=== PATIENT | female | born 1940 | race Caucasian/White ===

== ENCOUNTER 2024-12-29 15:32 | Inpatient (IN) | payer OTHER, SELFPAY ==
[2024-12-29] VITALS (10 sets, daily range): BP systolic 96–158; BP diastolic 49–89; BMI 26.6
[2024-12-29 12:21] LABS: Hematocrit 37.9 % (37.0-47.0); Hemoglobin 12.2 g/dL (12.0-16.0); Mean Corp Hgb Conc. 32.2 g/dL (33.0-37.0); Mean Corpuscular Volume 82.8 fL (81.0-99.0); Nucleated Red Blood Cells % 0 %; Platelet Count 254 10^3/uL (130-400); Red Cell Dist. Width 12.6 % (11.5-14.5)
[2024-12-29 12:45] LABS: ALT (SGPT) 25 U/L (0-35); AST (SGOT) 35 U/L (14-36); Albumin 3.5 g/dl (3.5-5.0); Alkaline Phosphatase 63 U/L (38-126); Blood Urea Nitrogen 36 mg/dl (7-17); Calcium 9.3 mg/dl (8.4-10.2); Carbon Dioxide 26 mmol/L (22-30); Chloride 101 mmol/L (98-107); Estimated Creatinine Clearance 25 ml/min; Glucose 134 mg/dl (70-99); Potassium 4.4 mmol/L (3.5-5.1); Sodium 134 mmol/L (135-145); Total Protein 6.9 g/dl (6.3-8.2); eGFR 37.33
[2024-12-29 13:06] LABS: Troponin I 0.059 ng/ml
--- NOTE | 2024-12-29 13:22 | ED.GENMED ---
History of Present Illness
General
Chief Complaint: Chest Pain
Time Seen by Provider: 12/29/24 12:12
History of Present Illness
History of Present Illness:
84-year-old female with history of permanent A-fib on Eliquis presents to the emergency department for evaluation of chest pain and general fatigue. She states that she had a brief period of time with chest pain 2 days ago but it resolved, since
that time she is reporting severe fatigue and feels as though she wants to fall asleep at any given moment. Denies shortness of breath or leg swelling. No prior history of coronary artery disease with no stents to her knowledge. Follows with
[facility]ology Dr. Posada
Review of Systems
Review of Systems
Allergies reviewed?: Yes
All Other Systems: ROS reviewed and negative except as documented in HPI and ROS
Phy Exam
Physical Exam
Physical Exam:
GEN: Well appearing, NAD, WDWN
HEENT: Oral mucosa moist, no scleral icterus
Cardiac: Irregular but controlled rate, no murmur
Lung: No respiratory distress, no tachypnea, faint crackles left lower lobe
MSK: No gross deformity or injuries
Skin: Good color, no pallor or jaundice, no rashes
Neuro: AO x3, moves all extremities freely
Psych: Calm, cooperative
Scores
Heart Score for Chest Pain Patients
STEMI patient?: No
History: Moderately Suspicious
ECG: Normal
Age: >/= 65 years
Risk Factors: 1 or 2 Risk Factors
Troponin: </= Normal Limit
Heart Score for Chest Pain Patients: 4
Heart Score Risk: 20.3% MACE over next 6 weeks
Course
Orders/Labs/Results
Orders:
Orders
12/29/24 12:06
Electrocardiogram (*1) Urgent
Reason for Study: Hypertension, Benign
EKG- Treatment ONCE
12/29/24 12:14
Complete Blood Count/With Diff Urgent
Comprehensive Metabolic Panel Urgent
Digoxin Urgent
12/29/24 12:19
CR Chest - 2 Views Urgent
Comment:
Reason For Exam: chest pain
12/29/24 12:22
Troponin I Urgent
12/29/24 13:22
Aspirin Chewable [Low Strength Aspirin] 324 mg PO NOW STA
12/29/24 14:56
Add On- LAB Routine
Tests Added?: Digoxin level
12/29/24 15:00
Admit/Transfer Patient As Directed
Co-Sign Provider:
Level of Care: Inpatient admission
Assign to:: IVU
Physician / Group: hospitalist
Diagnosis: NSTEMI
Reason for Hospitalization: NSTEMI
Expected length of stay greater than two midnights?: Yes
ELOS- Estimated Length of Stay in days: 3
I certify the patient meets the requirements for IP care: Yes
PRN Pain Medication Management As Directed
May give lesser potent ordered pain med per pt: Yes
preference::
Protocol:: Medication orders for pain may be administered in a
manner that supports deferring to patient preference
when the pt is:
- Requesting an ordered lesser potent pain medication.
Least to most potent pain medications are defined
as: acetaminophen < NSAID < tramadol < opioids
(morphine, oxycodone, hydromorphone).
- Requesting a lesser dose of the same medication IF
ORDERED.
- Requesting a less intrusive route of administration
if both routes are prescribed by the provider (PO <
IV).
12/29/24 15:02
Code Status As Directed
Resuscitation Status: Full Code
12/29/24 15:12
COVID-19 Antigen Routine
Source: Nasal Swab
12/29/24 15:26
0.9% Sodium Chloride 500 ml [Nss] 500 ml IV BOLUS
Abnormal Lab Results
12/29/24 12/29/24
12:14 12:22
WBC 13.8 H 10^3/uL
(4.8-10.8)
MCH 26.6 L pg
(27.0-31.0)
MCHC 32.2 L g/dL
(33.0-37.0)
MPV 11.1 H fL
(7.4-10.4)
Abs Immat Gran (auto) 0.1 H 10^3/uL
(0-0.05)
Absolute Neuts (auto) 12.0 H 10^3/uL
(1.4-6.5)
Absolute Lymphs (auto) 0.8 L 10^3/uL
(1.2-3.4)
Absolute Monos (auto) 0.9 H 10^3/uL
(0.1-0.6)
Immature Gran % 0.7 H %
(0-0.5)
Neutrophils % 86.5 H %
(42.2-75.2)
Lymphocytes % 5.5 L %
(20.5-51.1)
Sodium 134 L mmol/L
(135-145)
BUN 36 H mg/dl
(7-17)
Creatinine 1.4 H mg/dL
(0.6-1.0)
Glucose 134 H mg/dl
(70-99)
Troponin I 0.059 H* ng/ml
12/29/24 12:14
12/29/24 12:14
Vital Signs
Initial and Last Documented VS:
Initial Vital Signs
Temp Pulse Resp BP Pulse Ox
97.4 F 76 18 133/52 97
12/29/24 12:07 12/29/24 12:07 12/29/24 12:07 12/29/24 12:07 12/29/24 12:07
Last Documented Vital Signs
Temp Pulse Resp BP Pulse Ox
97.4 F 87 20 96/75 97
12/29/24 12:07 12/29/24 15:30 12/29/24 15:30 12/29/24 15:00 12/29/24 15:30
MDM/Problems Addressed
MDM/Problems Addressed:
Concern for NSTEMI causing her chest pain 2 days ago given elevated troponin. She is comfortable at this time, EKG does not appear ischemic however with no comparison from prior. Heparin withheld as the patient has taken anticoagulation as
recently as this morning. Will admit to the hospitalist service for further management
Comment
Comment:
EKG independently interpreted by me shows a rate controlled atrial fibrillation at a rate of 78, ST depressions with T wave inversions laterally noted, no comparisons available
*Pulse Oximetry
SaO2: 97
Oxygen Mode of Delivery: Room air
Patient hypoxic: no
*Critical Care Note
Total Time (30-74mins, 75-104mins- exclusive of procedures): Not Applicable
ED Attending Note
-
Portions of this chart may have been created with voice recognition software.� Occasional wrong word or��sound alike� substitutions may have occurred due to the inherent limitations of voice recognition software.
Discharge Plan
Departure
Patient Disposition: Admit
Date of Disposition: 12/29/24
Time of Disposition: 13:25
Admit to: IVU
Presentation/result/management discussed w/ accepting MD/DO: Hospitalist
Discharge Problem:
Non-ST elevation WI (NSTEMI)
Interventions
Interventions:
*Risk Screen - Suicide Last Done: 12/29/24 12:11
*General Assessment Last Done: 12/29/24 12:09
*Neglect/Abuse Screening Last Done: 12/29/24 12:11
*ED- Fall Risk Assessment Last Done: 12/29/24 12:09
*ED COVID-19 Vaccine History Last Done: 12/29/24 12:09
ED- Cardiac Assessment Last Done: 12/29/24 12:11
[2024-12-29] MEDS: LOW STRENGTH ASPIRIN 324 MG PO (13:26)
--- NOTE | 2024-12-29 13:52 | W.PN.UPDATE ---
Addendum entered and electronically signed by En Moore MD 12/29/24 15:33:
Correction:
ROS
Denies shortness of breath or leg swelling.
<del>No</del> <del>prior</del> <del>history</del> <del>of</del> <del>coronary</del> <del>artery</del> <del>disease</del> <del>with</del> <del>no</del> <del>stents</del> <del>to</del> <del>her</del> <del>knowledge.</del> Report prior HX [place]
Follows with [place] cardiology Dr. Posada
Original Note:
Update Note
Progress Note Update
This note serves as an addendum to the H&P by PGY3 Vianney Guevara
HPI�
84F on chronic eliquis and BB for HX permanent AF seen at ER:
- evaluation of SSCP and general fatigue.
- brief period of time with chest pain 2 days ago but it resolved
- severe fatigue and feels as though she wants to fall asleep at any given moment.
- associated N/V
ROS
Denies shortness of breath or leg swelling.
No prior history of coronary artery disease with no stents to her knowledge.
Follows with [place] cardiology Dr. Posada
Relevant VS
Temp Pulse Resp BP Pulse Ox
97.4 F 80 23 97/65 96
12/29/24 12:07 12/29/24 13:30 12/29/24 13:30 12/29/24 13:00 12/29/24 13:30
Reviewed VS:
PE
Gen: NAD
HEENT: anicteric
Neck: supple
Lungs: CTA
Cor:irregular
Abdomen:�benign
HEALTH AND SAFETY TRAINER: AAO3 grossly non focal
MS:no edema
Psych:nl mood an affect
Relevant Data�
12/29/24 12/29/24
12:14 12:22
WBC 13.8 H
Sodium 134 L
BUN 36 H
Creatinine 1.4 H
eGFR 37.33
Glucose 134 H
AST 35
Troponin I 0.059 H*
EKG
ATRIAL FIBRILLATION WITH A COMPETING JUNCTIONAL PACEMAKER WITH PREMATURE VENTRICULAR OR ABERRANTLY CONDUCTED COMPLEXES
NONSPECIFIC ST AND T WAVE ABNORMALITY
ABNORMAL ECG
NO PREVIOUS ECGS AVAILABLE
CXR: NAD
NO prior hospitalist admission:
ASSESSMENT & PLAN
NSTEMI - s/p ASA 325 mg at ER
Episodes of CP - currently CP free
- HX Prior cardiac care at [place].
- POS first TPNI - trend till peak
- Last dose of Eliquis this AM
- to hold Eliquis
- starts Heparin gtt this evening at the time of scheduled next dose of Eliquis
- c/w baby ASA
- ECHO in AM
- DCA cad consult
Fatigue and recent N/V
- check Covid
- check Dig level
- PT/OT
HLD
- on hi intensity Pravastatin
Perm A Fib
- will switch to Heparin gtt in place of Eliquis
- c/w Metoprolol tartrate
- on Dig - check Dig level prior to next dose
Renal insufficiency of uncertain chronicity
Creat suggestive of likely CKD
Trend Cr
DVT Px: Heparin gtt
Code: Full
IP TLM
--- NOTE | 2024-12-29 14:32 | HPS.HSE ---
Addendum entered and electronically signed by En Moore MD 12/29/24 15:39:
I saw and examined the patient.
The RUBBER ATTACHER or PA's note was reviewed and I agree PGY3 Vianney Guevara note:
Comment:
Please refer to my UPDATE NOTE
Original Note:
Family Physician
-
Family Physician: NOT KNOW UNKNOWN - Agreeable to Residency clinic
Chief Complaint
-
Chest pain, fatigue
History of Present Illness
84 year old female with history of prior MO without stents, permanent Afib on Eliquis, who presents to the ED from [facility] for recent chest pain and ongoing fatigue. Pt was in her usual state of health until two days ago when she
stared having nausea/vominting, and developed substernal chest pain and tiredness which had her spending most of her day in bed. Over the past two days chest pain improved and then resolved, but she continued to feel fatigued. 4 episodes of emesis,
with last episode yesterday. Also had reduced PO intake over past two days due to poor appetite.
She takes Eliquis for permanent Afib and took her morning dose before 10am today.
She ambulates with a cane due to left ankle joint instability but otherwise has no other medical conditions. No history of kidney disease. Denies dyspnea, lower extremity edema, recent illness of fevers/chills/sweats. Currently denies chest pain or
nausea.
Medical History
Past Medical History
Past Medical History: Reports Arrhythmia (permanent Afib on Eliquis)
Past Surgical History: Reports Gynocological (D&C) and Tonsilectomy
Social History
Tobacco: Non-smoker
Alcohol: None
Drug: None
Family History
Family History: Not pertinent
Allergies / Home Medications
Allergies reflects when Allergies were last updated in [facility].
Home Medications with original date entered in [facility]
Allergy/Medication List:
Allergies
Allergy/AdvReac Type Severity Reaction Status Date / Time
Penicillins Allergy Unknown Unknown Verified 12/29/24 12:15
Home Medications
apixaban 5 mg tablet (Eliquis) 5 mg PO BID Blood Clot Prevention/Tx 12/29/24
aspirin 81 mg chewable tablet 162 mg PO DAILYPRN PRN chest pain 12/29/24
cetirizine 10 mg tablet (Zyrtec) 10 mg PO HS Allergies 12/29/24
digoxin 125 mcg (0.125 mg) tablet 125 mcg PO DAILY Arrhythmia 12/29/24
metoprolol tartrate 25 mg tablet 25 mg PO BID Blood Pressure 12/29/24
pravastatin 80 mg tablet 80 mg PO HS 12/29/24
Review of Systems
-
History Source: Patient
Constitutional: Reports Fatigue; Denies Fever, Night Sweats or Chills
Respiratory: Denies Trouble Breathing
Cardiac: Denies Chest Pain, Diaphoresis or Palpitations
Abdomen/GI: Denies Abdominal Pain, Nausea, Vomiting, Diarrhea or Constipated
: Denies Dysuria, Incontinence, Difficulty Voiding or Bleeding
Physical Exam
Vital Signs
Vital Signs
Temp Pulse Resp BP Pulse Ox
97.4 F 80 23 97/65 96
12/29/24 12:07 12/29/24 13:30 12/29/24 13:30 12/29/24 13:00 12/29/24 13:30
Physical Exam
General: Well Developed, Well Nourished, No Apparent Distress, Comfortable and Conversant
HEENT: NormoCephalic, Anicteric and Other (Mucous membranes slightly dry)
Respiratory: Non Labored Respirations and Other (mildly reduced breath sounds in left lower lobe); No Wheezes, Rales, Rhonchi or Crackles
Cardiac: S1/S2 and Irregular Rhythm; No Peripheral Edema, Calf Tenderness, Verona's Sign or Other (regular rate)
GI: Soft, Non Tender, Non Distended and Normal Bowel Sounds
Genito-urinary: No costovertebral tender
Musculoskeletal: No Clubbing, No Cyanosis and No Edema
Skin: Warm and Dry
Neuro: Awake, Alert and Oriented
Psych: Calm
Laboratory Results
-
12/29/24 12:14
12/29/24 12:14
Laboratory Results
Total Bilirubin 0.8 mg/dl (0.2-1.3) 12/29/24 12:14
AST 35 U/L (14-36) 12/29/24 12:14
ALT 25 U/L (0-35) 12/29/24 12:14
Alkaline Phosphatase 63 U/L (38-126) 12/29/24 12:14
Troponin I 0.059 ng/ml H* 12/29/24 12:22
Impression/Plan
-
IMPRESSION:
84 year old female with history of prior MO, permanent Afib on Eliquis, who presents with non ST segment myocardial infarction.
PLAN:
NSTEMI:
Troponin 0.059, EKG with afib with nonspecific ST segment abnormality
- Pt received Aspirin in Ed, cont with Asp 81 tomorrow
- Took AM Eliquis dose (before 10am per pt). Will start heparin drip at 8pm today. Hold Eliquis
- Trend Troponin
- Check echo
- Continue pravastatin and metoprolol
Renal insufficiency of uncertain chronicity:
- Cr 1.4, pt reports no known history of CKD
- Hx of poor oral intake of food, appears somewhat dry. will give 500ml bolus NS
- Avoid nephrotoxic agents.
- Follow kidney function
Hypotension:
Mildly reduced DBP on arrival. Corrected spontaneously.
- Monitor
Permanent Afib:
- Rate controlled
- Hold Eliquis for heparin gtt
- Check digoxin level
CAD:
- Prior history of MO without stenting (per pt)
- Start Asp 81mg daily tomorrow, continue Pravastatin
DVT ppx: Heparin drip
Code Status: full Code
[2024-12-29 15:39] LABS: COVID-19 Antigen Negative (Negative)
--- NOTE | 2024-12-29 15:52 | CON.CAR ---
Addendum entered and electronically signed by Hong Aguillon MD 12/29/24 17:33:
I saw and examined the patient.
The POWER AND RECOVERY SHIFT ENGINEER or PA's note was reviewed and I agree with the note.
Comment: General: Well developed, well nourished in NAD.
Neck: Supple, no JVD, HJR, carotids +2 B/L, no bruits bilaterally.
Heart: Non displaced PMI, Irreg, no murmurs, No S3, S4, no rubs.
Lungs: Scattered rhonchi
Extremities: No clubbing, cyanosis or edema bilaterally.
Neuro: Grossly nonfocal, awake, alert and oriented x3.
Nazia has a history of permanent atrial fibrillation chronic anticoagulation, remote inferior DC in 2001, hyperlipidemia, UTIs. She presents with increasing lethargy. Cardiology is consulted for elevated troponin. She did have vomiting a few days
ago followed by some chest discomfort. She denies shortness of breath.
Will track troponins. Will check echocardiogram. Will get records from [facility]. Will hold scribleight and await troponin levels. Discussed in detail with daughter at bedside
Original Note:
Consultation
Consultation Request
Date/Time Consultation Performed: 12/29/24
Requesting Provider: Dr. Guevara, resident
Performing Provider: Veronique Onofre PA-C for Dr. Aguillon
Reason for Consultation: CP
Medical History
-
Chief Complaint: fatigue, lethargy
History of Present Illness:
Patient is an 84-year-old female with past medical history of permanent atrial fibrillation on chronic anticoagulation, remote inferior DC 2001, hyperlipidemia, frequent UTIs who presented to [facility] as patient's daughter noted that she was very
lethargic over the last several days. Patient states she fell asleep multiple times during the day throughout the last 2 days which is not normal for her. She denies fevers or chills. She does report vomiting followed by some central chest
discomfort 2 nights ago. She reports she was able to fall back to sleep and when she awoke again the pain was gone. She has not had recurrence. She has had recent stress as 3 weeks ago she moved into [facility] from an independent home. She is
followed by Dr. Venegas of [facility] [place] cardiology. Troponin 0.059 resulting in cardiology consultation.
PMH:
Permanent atrial fibrillation
Chronic anticoagulation with eliquis
CAD with prior remote inferior DC 2001, with reported inability to revascularize
PVCs
Hyperlipidemia
Frequent UTIs
Past Medical History
Past Medical History: Other (in HPI)
Social History
Tobacco: Non-Smoker
Alcohol: None
Living: Assisted Living (recently moved to [email or web address] ~3 weeks ago)
Family History
Family History: Reviewed & Not Pertinent
Allergies / Home Medications
Allergy/AdvReac Type Severity Reaction Status Date / Time
Penicillins Allergy Unknown Verified 12/29/24 15:49
�Medication �Instructions �Recorded �Confirmed �Type
apixaban 5 mg tablet (Eliquis) 5 mg PO BID Blood Clot 12/29/24 12/29/24 History
Prevention/Tx
aspirin 81 mg chewable tablet 162 mg PO DAILYPRN PRN chest pain 12/29/24 12/29/24 History
cetirizine 10 mg tablet (Zyrtec) 10 mg PO HS Allergies 12/29/24 12/29/24 History
digoxin 125 mcg (0.125 mg) tablet 125 mcg PO DAILY Arrhythmia 12/29/24 12/29/24 History
metoprolol tartrate 25 mg tablet 25 mg PO BID Blood Pressure 12/29/24 12/29/24 History
pravastatin 80 mg tablet 80 mg PO HS 12/29/24 12/29/24 History
Review of Systems
-
History Source: Patient and Family
All other systems: Negative unless noted
Physical Exam
Vital Signs
Temp Pulse Resp BP Pulse Ox
97.4 F 87 20 96/75 97
12/29/24 12:07 12/29/24 15:30 12/29/24 15:30 12/29/24 15:00 12/29/24 15:30
Lab Results
12/29/24 12:14
12/29/24 12:14
Troponin I 0.059 ng/ml H* 12/29/24 12:22
Physical Exam
General: No Apparent Distress and Comfortable
HEENT: Normocephalic, Anicteric and Moist Mucous Membranes
Respiratory: Clear and Non Labored Respirations
Cardiac: S1/S2 and Irregular Rhythm
GI: Soft, Non Tender, Non Distended and Normal Bowel Sounds
Musculoskeletal: No Clubbing, No Cyanosis and No Edema
Skin: Warm and Dry
Neuro: AO x 3
Impression / Plan
-
Primary Validation Scientist: Dr. Venegas of [facility] [place] [facility]
Assessment:
Presentation with lethargy
N/V
Leukocytosis
ABIOLA
Elevated troponin
Permanent atrial fibrillation
Chronic anticoagulation with eliquis
CAD with prior remote inferior DC 2001, with reported inability to revascularize
PVCs
Hyperlipidemia
Frequent UTIs
Persantine MIBI nuclear stress test 05/14/2018: Small to moderate sized fixed anterior defect with no evidence of ischemia
ECHO 03/06/23: EF 60%, mild concentric LVH, enlarged left atrium, mild to moderate MR, mild TR
Plan:
- Patient presents with lethargy and nausea vomiting. She is noted to have leukocytosis and ABIOLA with history of frequent UTIs. Ordered UA with reflex to culture. covid test negative
- Requested and received records from primary metal caster including last office visit 07/02/2024, last echocardiogram 03/06/2023, and last Persantine MIBI stress test from 2018. Records summarized above
- Troponin elevated at 0.059. Patient does relay some chest discomfort which occurred after vomiting 2 days ago. She has not had recurrence since and is chest pain-free at present. Would trend troponin
- Hold Eliquis for now if troponin uptrending, may require inpatient ischemic evaluation. If stable or downtrending, more likely nonischemic myocardial injury and would attempt to manage conservatively
- Check echo, last from 2022 with results as above
- Continue aspirin
- check CVE
- CXR without acute abnormality
- By review of EKGs in rate controlled atrial fibrillation and occasional PVC. Continue Lopressor
- Dig level is 1.2. will decrease dosing to 0.125mg MWF as also with ABIOLA at present
- d/w patient and daughter Michelle at bedside
Data Reviewed
-
EKG: Tracing Personally Visualized and interpreted
Radiology: Report Reviewed by me, Discussed with Patient and Discussed with Family
Medical Tests (Nuc Med, Echo etc): Report Reviewed by me
Labs: Labs Reviewed by me, Discussed with Patient and Discussed with Family
Old Records: Requested and Reviewed
[2024-12-29] MEDS: FLUSH (NSS) 1 FLUSH IV (16:02)
[2024-12-29] MEDS: NSS 500 IV (16:03)
[2024-12-29 16:15] LABS: Digoxin 1.2 ng/ml (0.8-2.0)
[2024-12-29 17:16] LABS: Urine Character Clear (Clear)
[2024-12-29 17:33] LABS: Urine White Cell 70-80 /HPF (0-5)
--- NOTE | 2024-12-29 18:04 | PTCARENOTE ---
patient arrived form ER, height and weight recorded. monitor shows Afib, VSS. patient has no c/o CP, SOB, Dizziness or nausea. patient AAO x 3, lung mohr clear, o2 sat 97% on RA, INT in right AC, flushes well. labs drawn and sent to lab. EKG done
as ordered. oriented to room and surroundings.
[2024-12-29 18:12] LABS: Hematocrit 35.7 % (37.0-47.0); Hemoglobin 11.8 g/dL (12.0-16.0); Mean Corp Hgb Conc. 33.1 g/dL (33.0-37.0); Mean Corpuscular Volume 81.3 fL (81.0-99.0); Platelet Count 258 10^3/uL (130-400); Red Cell Dist. Width 12.7 % (11.5-14.5)
--- NOTE | 2024-12-29 18:15 | W.PN.UPDATE ---
Update Note
Progress Note Update
Digoxin level 1.2 - relatively high for age and kidney function. Continue to hold for now. Will recheck Digoxin level in AM.
[2024-12-29 18:25] LABS: APTT 38.3 Sec (23.4-35.0)
[2024-12-29 18:34] LABS: Troponin I 0.047 ng/ml
[2024-12-29] MEDS: LOPRESSOR 25 MG PO (19:55)
[2024-12-29] MEDS: HEPARIN 25000 UNITS/250 ML IV (20:57)
[2024-12-29] MEDS: PRAVACHOL 80 MG PO (21:10)
[2024-12-29 21:51] LABS: Troponin I 0.051 ng/ml
--- NOTE | 2024-12-29 23:50 | PTCARENOTE ---
Patient received at change of shift resting in the bed. The patient denies chest pain or pressure at this time. Afib on the monitor. Patient AOx3 but has been somewhat forgetful at times, bed alarm in place. Serial troponin and ECGs completed as
ordered. Heparin gtt initiated as ordered. Discussed plan of care. Call carmichael within reach. Care ongoing.
[2024-12-30] VITALS (12 sets, daily range): BP systolic 71–143; BP diastolic 45–73; PULSE 89; O2SAT 97; BMI 26.1
[2024-12-30 00:32] LABS: Troponin I 0.049 ng/ml
[2024-12-30 03:41] LABS: Hematocrit 32.0 % (37.0-47.0); Hemoglobin 10.6 g/dL (12.0-16.0); Mean Corp Hgb Conc. 33.1 g/dL (33.0-37.0); Mean Corpuscular Volume 81.6 fL (81.0-99.0); Platelet Count 234 10^3/uL (130-400); Red Cell Dist. Width 12.7 % (11.5-14.5)
[2024-12-30 03:51] LABS: APTT 47.2 Sec (23.4-35.0)
[2024-12-30 04:09] LABS: Blood Urea Nitrogen 35 mg/dl (7-17); Calcium 9.0 mg/dl (8.4-10.2); Carbon Dioxide 25 mmol/L (22-30); Chloride 106 mmol/L (98-107); Digoxin 0.9 ng/ml (0.8-2.0); Estimated Creatinine Clearance 32 ml/min; Glucose 103 mg/dl (70-99); Potassium 4.1 mmol/L (3.5-5.1); Sodium 135 mmol/L (135-145); eGFR 49.86
[2024-12-30] MEDS: ZYRTEC 10 MG PO (07:40)
[2024-12-30] MEDS: LOPRESSOR 25 MG PO ×2 (07:40→19:29)
[2024-12-30] MEDS: LOW STRENGTH ASPIRIN 81 MG PO (07:40)
--- NOTE | 2024-12-30 08:51 | W.PN.CARDCBS ---
Addendum entered and electronically signed by Veronique Onofre PA-C 12/30/24 14:33:
echo 12/30/24 with EF 55 to 60%, mild concentric LVH, mild AR, mild to moderate eccentric posteriorly directed MR, mild TR, PAP 34 mmHg. this is stable compared to prior report received from primary theater education teacher dated 03/06/23. no plans for additional
cardiac intervention at this time. would consider for OP stress testing through primary theater education teacher upon DC. will transition IV heparin back to eliquis. will sign off, please call with questions.
Addendum entered and electronically signed by Masood Tolliver MD 12/30/24 09:57:
I saw and examined the patient.
The Slate Worker's note was reviewed and I agree with the note.
Comment: Briefly, 84-year-old woman past medical history of permanent atrial fibrillation and CAD with remote SC presenting with lethargy and is being treated for presumed UTI.
Patient's initial troponin was found to be elevated 0.059 for which cardiology was consulted
Overall troponin trend is flat 0.059�0.047�0.051�0.049. No need to trend further.
Patient is not reporting any chest discomfort to me this morning
ECGs reviewed showing nonspecific ST/T wave changes
Plan to check transthoracic echocardiogram and if this is unremarkable patient can discuss outpatient stress testing with her primary theater education teacher at [place]
Would discharge on aspirin/Eliquis, metoprolol, home statin and decreased dose of digoxin
Rest per Veronique Onofre
Original Note:
Today's Communication / Plan
-
Troponins flat overnight, suspected nonischemic myocardial injury
Check echo
If echo stable, we will plan to transition IV heparin back to Eliquis and sign off
Continue Lopressor. Would recommend decrease digoxin dosing from 125 mcg daily to 125 mcg Saturday for discharge with repeat digoxin level in 1 week
Outpatient follow-up with Dr. Venegas
Treatment of UTI per primary service
Impression / Plan
-
Primary Payroll Master: Dr. Venegas of [facility]
Assessment:
Presentation with lethargy
N/V
Leukocytosis
ABIOLA
Elevated troponin, suspected nonischemic myocardial injury
Permanent atrial fibrillation
Chronic anticoagulation with eliquis
CAD with prior remote inferior SC 2001, with reported inability to revascularize
PVCs
Hyperlipidemia
Frequent UTIs
Persantine MIBI nuclear stress test 05/14/2018: Small to moderate sized fixed anterior defect with no evidence of ischemia
ECHO 03/06/23: EF 60%, mild concentric LVH, enlarged left atrium, mild to moderate MR, mild TR
Plan:
- Patient presents with lethargy and nausea/vomiting. She is noted to have leukocytosis and ABIOLA with history of frequent UTIs. UA grossly abnormal. Urine culture pending. Defer treatment to primary service
- Received IV fluid and creatinine has improved from 1.4-1.1
- She reports some chest discomfort which occurred after vomiting 2 days ago. She remained chest pain-free overnight. Troponins remain flat in 0.04�0.05 range, suspected nonischemic myocardial injury
- Check echo. If remains stable compared to above, would plan to transition IV heparin back to outpatient Eliquis as no plans for inpatient cardiac intervention and will plan to sign off
- Continue aspirin, statin
- Remains in rate controlled atrial fibrillation on review of telemetry overnight. Continue outpatient Lopressor
- Digoxin level improved from 1.2 yesterday to 0.9 today. Will decrease dosing to 0.125 mg Saturday
- Outpatient cardiac follow-up with Dr. Venegas
- d/w nursing. d/w hospitalist via TT
Progress Note - Payroll Master
Subjective
Date of Service: December 30, 2024
No chest discomfort overnight. Reports feeling better today
Objective
Labs:
12/30/24 03:10
12/30/24 03:10
Labs
Hgb 10.6 g/dL (12.0-16.0) L 12/30/24 03:10
Hct 32.0 % (37.0-47.0) L 12/30/24 03:10
Plt Count 234 10^3/uL (130-400) 12/30/24 03:10
APTT 47.2 Sec (23.4-35.0) H 12/30/24 03:10
Sodium 135 mmol/L (135-145) 12/30/24 03:10
Potassium 4.1 mmol/L (3.5-5.1) 12/30/24 03:10
BUN 35 mg/dl (7-17) H 12/30/24 03:10
Creatinine 1.1 mg/dL (0.6-1.0) H 12/30/24 03:10
Glucose 103 mg/dl (70-99) H 12/30/24 03:10
Digoxin 0.9 ng/ml (0.8-2.0) 12/30/24 03:10
Troponins
12/29/24 12/29/24 12/29/24
12:22 18:02 21:09
Troponin I 0.059 H* 0.047 H* 0.051 H*
12/29/24
23:47
Troponin I 0.049 H*
Vital Signs and I&O:
Vital Signs
Temp Pulse Resp BP Pulse Ox
98.6 F 64 16 127/62 97
12/30/24 07:15 12/30/24 06:00 12/30/24 07:15 12/30/24 03:01 12/30/24 07:15
Vital Signs
Temp Pulse Resp BP Pulse Ox
98.6 F 64 16 127/62 97
12/30/24 07:15 12/30/24 06:00 12/30/24 07:15 12/30/24 03:01 12/30/24 07:15
Intake & Output
09/01/25 09/02/25 09/03/25 09/04/25
07:59 07:59 07:59 07:59
Intake Total 240 / 240
Balance 240 / 240
Physical Exam
Physical Exam
GEN: No distress, awake, alert, oriented x3
HEENT: supple, anicteric, mmm, EOMI
LUNGS: CTA bilaterally, no wheezes/rales
CV: Reg, S1/S2, 1/6 murmur
ABD: soft, BS+, NT/ND
EXT: No cyanosis, clubbing, edema
NEURO: Gross non-focal
SKIN: Warm, pink, dry. No rash
[2024-12-30 09:25] LABS: Glycohemoglobin (HgbA1c) 6.2 % (4.0-5.6)
--- NOTE | 2024-12-30 10:12 | W.PN.HOSP.TC ---
Today's Communication/Plan
-
ischemic work up including echo
await urine culture
Assessment / Plan
Assessment / Plan
Physical Exam
General: Well Developed, Well Nourished, No Apparent Distress, Comfortable and Conversant
HEENT: Normocephalic, Anicteric and Other (Mucous membranes slightly dry)
Respiratory: Non Labored Respirations , no wheezes or rales.
Cardiac: S1/S2
GI: Soft, Non Tender, Non Distended and Normal Bowel Sounds
Genito-urinary: No costovertebral tender
Musculoskeletal: No Clubbing, No Cyanosis and No Edema
Skin: Warm and Dry
Neuro: Awake, Alert and Oriented
Psych: Calm
84 year old female with history of prior [place], permanent Afib on Eliquis, who presents with chest pain
# Chest pain, rule out [place]
known CAD
D/w metalsmith, seems to favor non ischemic elevation of troponin and not c/w NSTEMI
will f/w echo , will d/w metalsmith today
ABIOLA
- Cr 1.4, improved.
Hypotension: no clinical significance
Permanent Afib:
- Rate controlled
Hyponatremia
Suspect UTI
not septic or toxic
No urinary symptoms
She felt dehydrated
Await urine culture
DVT ppx: Heparin drip
Code Status: full Code
Total time spent to see the patient, examine the patient, review data lab result, discuss treatment plan with patient, nursing staff around 55 minutes
Anticipated Discharge: 24 - 48 hours
Subjective/Interval History
-
Date of Service: December 30, 2024
No chest pain
No sob
Objective Data
-
Labs:
Laboratory Results
12/30/24 12/30/24
03:10 10:00
WBC 10.0
Hgb 10.6 L
Hct 32.0 L
Plt Count 234
APTT 47.2 H Pending
Sodium 135
Potassium 4.1
Chloride 106
Carbon Dioxide 25
BUN 35 H
Creatinine 1.1 H
Glucose 103 H
Calcium 9.0
Vital Signs:
Vital Signs
Temp Pulse Resp BP Pulse Ox
98.6 F 64 16 127/62 97
12/30/24 07:15 12/30/24 06:00 12/30/24 07:15 12/30/24 03:01 12/30/24 07:15
I&O
12/29/24 12/30/24 12/31/24
06:59 06:59 06:59
Intake Total 240 / 240
Balance 240 / 240
--- NOTE | 2024-12-30 11:56 | PTCARENOTE ---
Patient comfortable in chair, denies pain or shortness of breath. She is AO x3, with some forgetfulness, needs some reminders the day. Heparin gtt infusing at 1000 units/hr, PTT pending. A-fib HR in 8)'s. Echo pending. Bed and chair alarms in place
for safety, uses a single point cane with walking.
[2024-12-30 12:16] LABS: APTT 46.6 Sec (23.4-35.0)
--- NOTE | 2024-12-30 14:31 | CM ---
spoke to pt in room, she is prev indep, lives in [facility] apt at [facility], one floor , no steps to enter. she has a cane she uses, and denies any dc planning needs. plan is for dc to home when medically stable.
[2024-12-30] MEDS: PRAVACHOL 80 MG PO (20:21)
[2024-12-30] MEDS: LEVAQUIN 100 IV (20:21)
[2024-12-30] MEDS: ELIQUIS 5 MG PO (20:21)
--- NOTE | 2024-12-31 00:35 | PTCARENOTE ---
Pt. has no complaints of chest pain discomfort, VSS, A-fib on the monitor 60s-80's. OOB with assist x 1 to use BR, forgetful and won't always ask for help, bed alarm on. Heparin dc'd this shift per order, Eliquis started. Pt. resting quietly.
[2024-12-31 04:05] VITALS: BP 122/61
[2024-12-31 04:10] VITALS: BMI 25.9
[2024-12-31 07:18] VITALS: BP 136/64
[2024-12-31] MEDS: ZYRTEC 10 MG PO (08:33)
[2024-12-31] MEDS: ELIQUIS 5 MG PO (08:33)
[2024-12-31] MEDS: CEFTIN 500 MG PO (08:33)
[2024-12-31] MEDS: LOPRESSOR 25 MG PO (08:33)
[2024-12-31] MEDS: LOW STRENGTH ASPIRIN 81 MG PO (08:33)
[2024-12-31 09:04] LABS: Hematocrit 33.6 % (37.0-47.0); Hemoglobin 11.1 g/dL (12.0-16.0); Mean Corp Hgb Conc. 33.0 g/dL (33.0-37.0); Mean Corpuscular Volume 82.4 fL (81.0-99.0); Red Cell Dist. Width 12.8 % (11.5-14.5)
[2024-12-31 09:25] LABS: Platelet Count 132 10^3/uL (130-400)
--- NOTE | 2024-12-31 09:33 | W.PN.HOSP.TC ---
Today's Communication/Plan
-
dc
Assessment / Plan
Assessment / Plan
Physical Exam
General: Well Developed, Well Nourished, No Apparent Distress, Comfortable and Conversant
HEENT: Normocephalic, Anicteric and Other (Mucous membranes slightly dry)
Respiratory: Non Labored Respirations , no wheezes or rales.
Cardiac: S1/S2
GI: Soft, Non Tender, Non Distended and Normal Bowel Sounds
Genito-urinary: No costovertebral tender
Musculoskeletal: No Clubbing, No Cyanosis and No Edema
Skin: Warm and Dry
Neuro: Awake, Alert and Oriented
Psych: Calm
84 year old female with history of prior VA, permanent Afib on Eliquis, who presents with chest pain
# Chest pain, ruled out VA
known CAD
D/w video news editor, seems to favor non ischemic elevation of troponin and not c/w NSTEMI
Echo showed LVEF 55 to 60%, mild concentric LVH, mild AR, mild to moderate eccentric posteriorly directed MR, mild TR, PAP 34 mmHg. Echo seemed stable compared to prior report received from primary video news editor dated 03/06/23. Per cardiology: no
plans for additional cardiac intervention at this time.
ABIOLA
- Cr 1.4, improved.
Hypotension: no clinical significance
Permanent Afib:
- Rate controlled
Hyponatremia
# E Coli UTI
not septic or toxic
She reports tolerance to Keflex before, will do Ceftin X 5 days.
DVT ppx: Eliquis
Code Status: full Code
Total discharge time spent to see the patient, examine the patient, review data lab result, discuss discharge plan with patient, nursing staff around 65 minutes
Anticipated Discharge: Today
Subjective/Interval History
-
Date of Service: December 31, 2024
doing well
No pain or sob
Objective Data
-
Labs:
Laboratory Results
12/30/24 12/31/24
20:00 08:49
WBC 8.4
Hgb 11.1 L
Hct 33.6 L
Plt Count 132 D
APTT Cancelled
Sodium Pending
Potassium Pending
Chloride Pending
Carbon Dioxide Pending
BUN Pending
Creatinine Pending
Glucose Pending
Calcium Pending
Vital Signs:
Vital Signs
Temp Pulse Resp BP Pulse Ox
97.9 F 69 20 136/64 97
12/31/24 07:18 12/31/24 09:00 12/31/24 07:18 12/31/24 07:18 12/31/24 07:18
I&O
12/30/24 12/31/24 01/01/25
06:59 06:59 06:59
Intake Total 240 / 240 480 / 480
Output Total 550 / 550
Balance 240 / 240 -70 / -70
--- NOTE | 2024-12-31 10:42 | PTCARENOTE ---
Assumed care. patient AO x3, denies pain or shortness of breath. Walking to the bathroom using her cane, cloudy yellow urine, denies dysuria but has frequency. A-fib HR 70's. VSS. Bed and chair alarms audible, call carmichael in reach
[2024-12-31 11:07] VITALS: BP 98/57
[2024-12-31 12:35] LABS: Blood Urea Nitrogen 28 mg/dl (7-17); Calcium 9.9 mg/dl (8.4-10.2); Carbon Dioxide 28 mmol/L (22-30); Chloride 104 mmol/L (98-107); Estimated Creatinine Clearance 35 ml/min; Glucose 129 mg/dl (70-99); Potassium 4.0 mmol/L (3.5-5.1); Sodium 139 mmol/L (135-145); eGFR 55.90
--- NOTE | 2024-12-31 12:47 | PTCARENOTE ---
Patient discharged to home. Instructions reviewed, patient verbalized understanding. IV and telemetry removed. Patient escorted to [facility] in a wheelchair
--- NOTE | 2025-01-01 07:01 | W.DCSUMMARY ---
Discharge Summary
Discharge Data
Date of Admission: 12/29/24
Date of Discharge: 12/31/24
-
Pending Results: No
Hospital Course
84 years old female presented with chest pain and generalized weakness. Patient was noted to have mildly elevated troponin. Overall troponin trend is flat 0.059�0.047�0.051�0.049. Patient was a placed on intravenous heparin for possible need for
cardiac catheterization. Patient was evaluated by mortgage loan reviewer. She had echocardiogram that showed left ventricular EF 55 to 60%, mild concentric LVH, mild AR, mild to moderate eccentric posteriorly directed MR, mild TR, PAP 34 mmHg.
Echocardiogram was stable in comparison to prior report received from primary mortgage loan reviewer dated 03/06/23. Rigging Up Man did not recommend further inpatient additional cardiac intervention at this time and to consider OP stress testing through
primary mortgage loan reviewer. Patient was placed back on Eliquis with resolution of further or recurrent chest pain. Digoxin level improved from 1.2 to 0.9. Rigging Up Man recommended to decrease dosing to 0.125 mg Saturday. Patient was
noticed to have urinary symptoms. Urine culture showed E. coli infection. Started on antibiotic and she felt better. Patient was evaluated by physical therapy. She remained hemodynamically stable and was discharged home with home health services
in a stable condition.
Discharge Plan
-
Patient Disposition: [facility]
Discharge Diagnosis/Procedures: E Coli UTI
Diet: As tolerated
Blood Work: BMP/digoxin level in 1 week
Referrals:
Claudy Venegas MD [Non-Admitting Privileges] - in two to three weeks
UNKNOWN - PT DOES,NOT KNOW [Family Provider]
Additional Discharge Medication Instructions: your digoxin dose has decreased from every day to just on Mondays, Wednesdays, Fridays!
Prescriptions:
New
digoxin 125 mcg (0.125 mg) Tablet
125 mcg PO MoWeFr@1200 Qty: 30 0RF
cefuroxime axetil 500 mg Tablet
500 mg PO BID Qty: 9 0RF
Rx Instructions:
Patient tolerated medicine well in the hospital
aspirin 81 mg Tablet,Chewable
81 mg PO DAILY Qty: 30 0RF
Continued
Eliquis 5 mg Tablet
5 mg PO BID
cetirizine [Zyrtec] 10 mg Tablet
10 mg PO HS
pravastatin 80 mg Tablet
80 mg PO HS
metoprolol tartrate 25 mg Tablet
25 mg PO BID
Discontinued
digoxin 125 mcg (0.125 mg) Tablet
125 mcg PO DAILY
aspirin 81 mg Tablet,Chewable
162 mg PO DAILYPRN PRN (Reason: chest pain)
Discharge Orders:
Discharge Patient (As Directed); Ordered 12/31/24
Ordered By: Deanne Calvo
Care Plan Goals
Care Plan Goals:
Problem: Readiness for enhanced knowledge related to diagnosis and treatment plan
Goal: Understand your diagnosis and treatment plan needs, including medications if applicable.
Instructions: Know your diagnosis, underlying causes and treatment plan options, including medications if applicable. Consult with your health care team to learn about your diagnosis and treatment plan, including medications if applicable.
Discharge Date and Time
Discharge Date/Time: 12/31/24 13:16
Print Language: WELSH
== END 2024-12-31 13:16 | disposition home or self-care (01) | DRG 683 ==
LOC: IVU 15:32
PROVIDERS: Physician Assistant; Student in an Organized Health Care Education/Training Program; ADMITTING PHYSICIAN Internal Medicine; ATTENDING PHYSICIAN Internal Medicine; CONSULT PHYSICIAN Internal Medicine Cardiovascular Disease; EMERGENCY PHYSICIAN Emergency Medicine
DX: N17.9 Acute kidney failure, unspecified (principal); E87.1 Hypo-osmolality and hyponatremia; I5A Non-ischemic myocardial injury (non-traumatic); N39.0 Urinary tract infection, site not specified; I48.21 Permanent atrial fibrillation; R07.89 Other chest pain; I95.9 Hypotension, unspecified; B96.20 Unspecified Escherichia coli [E. coli] as the cause of diseases classified elsewhere; E78.5 Hyperlipidemia, unspecified; I25.2 Old myocardial infarction; Z79.899 Other long term (current) drug therapy; Z79.01 Long term (current) use of anticoagulants; Z11.52 Encounter for screening for COVID-19; Z87.440 Personal history of urinary (tract) infections
CPT/HCPCS: 71046; 80048; 80053; 80162; 81003; 81015; 83036; 84484; 85025; 85027; 85730; 87077; 87086; 87186; 87811; 93005; 93306; 97163; 97166; 99285

== ENCOUNTER → 2025-01-08 10:34 | Outpatient (REF) | payer OTHER, SELFPAY ==
[2025-01-08 11:33] LABS: Blood Urea Nitrogen 20 mg/dl (7-17); Calcium 9.6 mg/dl (8.4-10.2); Carbon Dioxide 30 mmol/L (22-30); Chloride 105 mmol/L (98-107); Digoxin 2.6 ng/ml (0.8-2.0); Glucose 97 mg/dl (70-99); Potassium 4.4 mmol/L (3.5-5.1); Sodium 140 mmol/L (135-145); eGFR > 60.00
== END ==
LOC: OLABPV 10:34
PROVIDERS: ATTENDING PHYSICIAN Physician Assistant; REFERRING PHYSICIAN Internal Medicine Cardiovascular Disease
DX: N17.0 Acute kidney failure with tubular necrosis (principal); Z51.81 Encounter for therapeutic drug level monitoring
CPT/HCPCS: 36415; 80048; 80162

== ENCOUNTER → 2025-01-19 11:07 | Outpatient (REF) | payer OTHER, SELFPAY ==
[2025-01-19 11:40] LABS: Blood Urea Nitrogen 26 mg/dl (7-17); Calcium 9.6 mg/dl (8.4-10.2); Carbon Dioxide 27 mmol/L (22-30); Chloride 106 mmol/L (98-107); Glucose 101 mg/dl (70-99); Potassium 4.7 mmol/L (3.5-5.1); Sodium 140 mmol/L (135-145); eGFR > 60.00
[2025-01-19 12:10] LABS: Digoxin 0.4 ng/ml (0.8-2.0)
== END ==
LOC: OLABPV 11:07
PROVIDERS: ATTENDING PHYSICIAN Internal Medicine Cardiovascular Disease; OTHER PHYSICIAN Internal Medicine Cardiovascular Disease
DX: I48.21 Permanent atrial fibrillation (principal); Z79.01 Long term (current) use of anticoagulants; I25.10 Atherosclerotic heart disease of native coronary artery without angina pectoris; I49.3 Ventricular premature depolarization; E78.5 Hyperlipidemia, unspecified; I34.0 Nonrheumatic mitral (valve) insufficiency; R78.89 Finding of other specified substances, not normally found in blood
CPT/HCPCS: 36415; 80048; 80162

== ENCOUNTER → 2025-02-10 18:12 | Outpatient (REF) | payer OTHER, SELFPAY ==
[2025-02-10 18:38] LABS: Urine Character Cloudy (Clear)
[2025-02-10 19:23] LABS: Urine Squamous Cell 0-2 /LPF (Few); Urine Urothelial Cell 0-2 /LPF (FEW); Urine White Cell 80-90 /HPF (0-5)
== END ==
LOC: OLABPV 18:12
PROVIDERS: ATTENDING PHYSICIAN Internal Medicine Geriatric Medicine
DX: R35.0 Frequency of micturition (principal)
CPT/HCPCS: 81003; 81015; 87086; 87088; 87186